=== PATIENT | female | born 1955 | race Caucasian/White ===

== ENCOUNTER 2017-03-04 12:21 | Emergency (ER) | payer OTHER ==
[~2017-03-04] VITALS: Ht 160 cm; Wt 100.7 kg
--- NOTE | ~2017-03-04 | EKG ---
[address] [address] ELECTROCARDIOGRAM REPORT Name: FERNANDO SCHULTE [id number] Admission: 03/04/17 Attend Phys: Discharge: 03/04/17 Date of : 51 Report #: [id number] THIS REPORT FOR: //name// [facility] ED Test Date: 2017-03-04 Test Time: 12:38:47 Pat Name: FERNANDO SCHULTE Department: Room: Gender: F Long Goods Drier: PETERSON : 1955 Requested By: Millie Macias Order Number: [id number] MD: Darrin Dyson Measurements Intervals [place] Rate: 76 P: 45 RI: 185 QRS: -29 QRSD: 124 T: 127 QT: 411 QTc: 463 Interpretive Statements Sinus rhythm Left atrial enlargement Nonspecific intraventricular conduction delay Inferior infarct, old Lateral leads are also involved Compared to ECG 06/04/2014 12:57:01 Atrial abnormality now present Intraventricular conduction delay now present Left-axis deviation no longer present Myocardial infarct finding still present Electronically Signed On 03-04-2017 23:02:41 HEAD OF SALES PROMOTION by Darrin Dyson [email or web address] <ELECTRONICALLY SIGNED> By: Darrin Dyson MD 03/04/17 2302 1238 1238 Darrin Dyson MD /EPI
[~2017-03-04 12:21] MED LIST: ACCUNEB SO1.25 MG/1; ASA81BEC PO; ASPIRIN325 PO; BRETHINE2.5 MG PO; EFFIENT10 MG PO; FISH OIL 1,001000 M2; FISH OIL 1,2001 EAC4 PO; FLONASE 0.05%50 MCG NASAL; FOLIC ACID0.4 MG PO; FOLIC ACID1 MG PO; GLUCOPHAGE1000 MG PO; HUMALOG100 UNIT/1 SUBQ; HYDROXYZINE HCL25 M2 PO; INVOKANA300 MG PO; LANTUS100 UNIT/M SUBQ; LEVOTHYROXIN0.025 MG PO; LEVOTHYROXIN0.088 MG PO; NITROGLYCERIN0.4 MG SUBLING; OMEPRAZOLE20 M2 PO; SINGULAIR 10 MG10 M1 PO; TOPROL XL50 MG PO; UNICOMPLEX M TA1 TA1 PO; VENTOLIN HFA 1818 GM INH; VITAMIN B COMP1 EACH PO; VITAMIN D1000 UNI1 PO; VITAMIN E100 UNI2; ZESTRIL20 MG PO; ZOCOR40 MG PO
[2017-03-04 13:24] LABS: ABSOLUTE NEUTROPHILS 3.1 thou/uL (1.4-8.2); BASOPHILS 1.2 % (0.0-2.0); EOSINOPHILS 2.5 % (0.0-3.0); HEMATOCRIT 38.7 % (37.0-47.0); HEMOGLOBIN 13.1 gm/dL (12.0-15.0); LYMPHOCYTES 35.8 % (24.0-44.0); MCH 31.5 pg (26.0-34.0); MCHC 33.8 g/dL (28.0-37.0); MONOCYTES 6.3 % (1.0-8.0); PLATELET COUNT 333 thou/uL (150-400); POLYS 54.2 % (36.0-66.0); RBC 4.16 mil/uL (4.20-5.00); RDW 13.7 % (10.5-14.5); WBC 5.7 thou/uL (4.0-11.0)
[2017-03-04 13:36] LABS: ANION GAP 10 mmol/L (7-16); CALCIUM 9.7 mg/dL (8.5-10.1); CHLORIDE 106 mmol/L (98-107); CO2 25 mmol/L (21-32); CREATININE 1.4 mg/dL (0.6-1.0); GLUCOSE 173 mg/dL (74-106); POTASSIUM 4.5 mmol/L (3.5-5.1); SODIUM 141 mmol/L (136-145); TROPONIN-I < 0.04 ng/mL (<0.06)
[2017-03-04 13:45] LABS: BUN 37 mg/dL (7-18)
[2017-03-04 15:31] VITALS: BP 133/77
== END 2017-03-04 15:32 | disposition home or self-care (01) ==
LOC: ER 12:21
PROVIDERS: Emergency Medicine
DX: R00.1 Bradycardia, unspecified (principal); E78.5 Hyperlipidemia, unspecified; E11.40 Type 2 diabetes mellitus with diabetic neuropathy, unspecified; K21.9 Gastro-esophageal reflux disease without esophagitis; I10 Essential (primary) hypertension; E03.9 Hypothyroidism, unspecified; Z90.49 Acquired absence of other specified parts of digestive tract; Z88.0 Allergy status to penicillin; Z88.2 Allergy status to sulfonamides; Z79.4 Long term (current) use of insulin

== ENCOUNTER 2018-11-07 20:31 | Inpatient (IN) | payer OTHER ==
[~2018-11-07] VITALS: Ht 167.6 cm; Wt 97.5 kg
[2018-11-07 20:32] VITALS: BP 141/95
[2018-11-07] MEDS ORDERED: SUPER LYSINE PO (20:51)
[2018-11-07] MEDS ORDERED: VITAMIN C PO (20:51)
[2018-11-07 20:52] LABS: ABSOLUTE NEUTROPHILS 3.8 thou/uL (1.4-8.2); BASOPHILS 1.2 % (0.0-2.0); HEMATOCRIT 37.7 % (37.0-47.0); HEMOGLOBIN 12.4 gm/dL (12.0-15.0); MCH 31.1 pg (26.0-34.0); MCHC 32.8 g/dL (28.0-37.0); MCV 94.9 fL (80.0-100.0); MONOCYTES 6.5 % (1.0-8.0); PLATELET COUNT 276 thou/uL (150-400); POLYS 58.3 % (36.0-66.0); RBC 3.98 mil/uL (4.20-5.00); RDW 13.9 % (10.5-14.5); WBC 6.5 thou/uL (4.0-11.0)
[2018-11-07] MEDS ORDERED: PLAVIX 75 MG TA75 M1 PO (20:52)
[2018-11-07] MEDS ORDERED: JARDIANCE10 MG PO (20:53)
[2018-11-07] MEDS ORDERED: VISTARIL 25 MG25 M1 PO (20:55)
[2018-11-07] MEDS ORDERED: ZEGERID 20 MG1 EACH PO (20:56)
[2018-11-07] MEDS ORDERED: FISH OIL 1,001000 M2 PO (20:57)
[2018-11-07 20:59] LABS: ANION GAP 12 mmol/L (7-16); BUN 21 mg/dL (7-18); CALCIUM 9.5 mg/dL (8.5-10.1); CHLORIDE 98 mmol/L (98-107); CO2 24 mmol/L (21-32); CREATININE 1.1 mg/dL (0.6-1.0); GLUCOSE 162 mg/dL (74-106); SODIUM 134 mmol/L (136-145)
[2018-11-07] MEDS ORDERED: BASAGLAR K100 UNIT/1 (20:59)
[2018-11-07] MEDS ORDERED: ASPIR 8181 MG PO (21:02)
[2018-11-07 21:09] LABS: TROPONIN-I <0.06 ng/mL (<0.06)
[2018-11-07 22:28] VITALS: BP 151/92
[2018-11-07 22:49] VITALS: BP 126/67
[2018-11-08] VITALS (7 sets, daily range): BP systolic 104–151; BP diastolic 60–81
[2018-11-08] LABS: CHOLESTEROL 186 mg/dL (<200); HDL CHOLESTEROL 57 mg/dL (>40); LDL CHOLESTEROL 96 mg/dL (<100); TC:HDL 3.3 Ratio (Not establshd); TRIGLYCERIDE 168 mg/dL (<150); VLDL 34 mg/dL (<40)
[2018-11-08 00:02] LABS: SERUM ASSESSMENT Clear
--- NOTE | 2018-11-08 03:16 | NUR ---
PT ARRIVED ON UNIT FROM ER AT 2240. COMES FROM HOME. HAD BEEN AT [place] AND BEGAN HAVING SOME CHEST PAIN. TOOK TWO NITRO PILLS AT HOME WELL AN ASPIRIN. THIS DID NOT RESOLVE THE CHEST PAIN. CALLED 911 AND CAME TO ER. BY THE TIME SHE ARRIVED THE CHEST PAIN WAS RESOLVED. THROUGHOUT THE REMAIDER OF THIS SHIFT SHE HAD NO COMPLAINTS OF CHEST PAIN. DENIES NAUSEA. AMBULATING TO BATHROOM INDEPENDENTLY. PLAN FOR NUC STRESS TEST 11/08. RESTING COMFORTABLY. NO NEEDS VOICED. CALL LIGHT WITHIN REACH. WILL CONTINUE TO PROVIDE FREQUENT OBSERVATION.
[2018-11-08 04:01] LABS: CALCIUM 9.2 mg/dL (8.5-10.1); CREATININE 1.3 mg/dL (0.6-1.0); POTASSIUM 4.3 mmol/L (3.5-5.1)
[2018-11-08 04:09] LABS: TROPONIN-I 0.41 ng/mL (<0.06)
--- NOTE | 2018-11-08 08:01 | EKG ---
[address] [place] [address] ELECTROCARDIOGRAM REPORT Name: FERNANDO SCHULTE Room #: 214-P ADM IN M.R.#: [id number] Admission: 11/07/18 Attend Phys: Benito Bartholomew MD Discharge: Date of : 51 Report #: [id number] THIS REPORT FOR: //name// [facility] ED Test Date: 2018-11-07 Test Time: 20:34:42 Pat Name: FERNANDO SCHULTE Department: Room: 214 Gender: F Annual Giving Officer: ABY : 1955 Requested By: Nicholas Kennedy Order Number: [id number] MD: Darrin Dyson Measurements Intervals [place] Rate: 76 P: 71 SD: 174 QRS: -41 QRSD: 128 T: 91 QT: 432 QTc: 486 Interpretive Statements Sinus rhythm Left atrial enlargement Nonspecific IVCD with LAD Anterior infarct, old Compared to ECG 03/04/2017 12:38:47 No significant changes Electronically Signed On 11-08-2018 8:01:27 CDT by Darrin Dyson [email or web address] <ELECTRONICALLY SIGNED> By: Darrin Dyson MD 11/08/18800 33 33 Darrin Dyson MD /JUANJO
--- NOTE | 2018-11-08 08:03 | EKG ---
[address] [address] ELECTROCARDIOGRAM REPORT Name: FERNANDO SCHULTE Room #: 214-P ADM IN M.R.#: [id number] Admission: 11/07/18 Attend Phys: Benito Bartholomew MD Discharge: Date of : 51 Report #: [id number] THIS REPORT FOR: //name// [facility] Test Date: 2018-11-08 Test Time: 07:32:06 Pat Name: FERNANDO SCHULTE Department: Room: 214 P Gender: F Information Clerk Brokerage: FUENTES : 1955 Requested By: Johana Zepeda Order Number: [id number] MD: Darrin Dyson Measurements Intervals [place] Rate: 69 P: 58 RI: 173 QRS: -26 QRSD: 119 T: 162 QT: 502 QTc: 538 Interpretive Statements Sinus rhythm Probable left atrial enlargement Nonspecific intraventricular conduction delay Inferior infarct, old Abnrm T, consider ischemia, anterolateral lds Compared to ECG 03/04/2017 12:38:47 Possible ischemia now present Myocardial infarct finding still present Electronically Signed On 11-08-2018 8:02:58 CDT by Darrin Dyson [email or web address] <ELECTRONICALLY SIGNED> By: Darrin Dyson MD 11/08/1802 0732 Darrin Dyson MD /EPI
--- NOTE | 2018-11-08 10:15 | NUR ---
RECEIVED FROM PHOTOGRAPHER MOTION PICTURE. VSS R GROIN CATH SITE WITHOUT HEMATOMA NO BRUIT HEARD NSR PT INSTRUCTED BR. SEE DATA FLOW SHEET FOR FREQUENT VITAL SIGNS AND GROIN CHECKS. WILL CONTINUE TO MONITER AND CARE FOR PT PER PLAN OF CARE
--- NOTE | 2018-11-08 12:51 | CATHLAB ---
[facility] [address] [place] [address] INVASIVE PROCEDURE REPORT Name: FERNANDO SCHULTE Room #: 214-P ADM IN M.R.#: [id number] Admission: 11/07/18 Attend Phys: Benito Bartholomew Discharge: Date of : 51 Date of Service: 11/08/18 1251 Report #: [id number] THIS REPORT FOR: //name// APPROVED REPORT Study performed: 11/08/2018 08:33:11 Patient Details Patient Status: In-Patient Room #: The patient is a 63 year-old female Event Personnel Andrew Lucio Household Appliance Installer, Ivy Pearl RN RN, Krishna Espnial RTR Scrjelena, Nitish Reece Monitor Procedures Performed Left Heart Cath w/or w/o Coronaries [id number] [facility] Place w/wo Plasty Single LAD [id number] Indication Chest pain Procedure Narrative The Right Groin^ was infiltrated with 1% Lidocaine subcutaneous anesthesia. A PINNACLE 6FR Sheath #[id number] sheath was inserted into the RFA^. Coronary angiography was performed using coronary diagnostic catheters. The right coronary system was accessed and visualized with a JR4 catheter. The left coronary system was accessed and visualized with a JL4 catheter. The left ventricle was accessed and visualized with a PIGTAIL catheter. Left ventricular/Aortic Valve gradient assessed via catheter pullback. Left ventriculogram was performed in 30 degree projection. Closure device was deployed with a 6 Fr ACT #[id number]. The patient tolerated the procedure well and there were no complications associated with the procedure. There was no hematoma. Intraoperative Conscious Sedation Sedation start time: 8.48 Case end Time: 10.09 Fentanyl 100 mcg Versed 1 mg Fluoro Time: 16.70 minutes Dose: DAP 45779.00 cGycm2 2993 mGy Contrast Type and Amount: Visipaque 230 ml [facility] [place] [address] INVASIVE PROCEDURE REPORT Name: FERNANDO SCHULTE Room #: 214-P [facility] IN M.R.#: [id number] Admission: 11/07/18 Attend Phys: Benito Bartholomew Discharge: Date of : 51 Date of Service: 11/08/18 1251 Report #: [id number] Coronary Angiography The patient's coronary anatomy is right dominant. Diagnostic Cath Left Main Minimal left main plaquing. Large in caliber LAD Critical proximal 99% LAD stenosis Previously placed proximal LAD stent with moderate intrastent plaquing Diagonal 1 Small, angiographically normal first diagonal branch. Diagonal 2 Moderate size second diagonal branch, angiographically normal Circumflex Large, nondominant circumflex comprised of 3 marginal branches OM1 Moderate sized first marginal branch, angiographically normal OM2 Large second marginal branch, angiographically normal OM3 Small, terminal third marginal branch, angiographically normal Right Coronary Large, dominant right coronary with 30% mid vessel plaquing R PDA Normal posterior descending branch. RPLV Large, normal posterolateral branch Left Ventriculography The left ventricle is mildly dilated in size with abnormal contractility. The left ventricular ejection fraction is estimated to be 40-45%. Left ventricular wall motion abnormalities are present. There is no mitral insufficiency. Anteroapical hypokinesis Hemodynamics The aortic pressure is 129/70 mmHg with a mean of 97 mmHg. The left ventricular pressure is 141/12 mmHg with a mean of mmHg. The left ventricular end diastolic pressure is 28 mmHg. There was no gradient across the aortic valve upon pullback. Pullback from the left ventricle to the aorta revealed no gradient across the aortic valve. PCI Technique Lesion Anticoagulation was achieved with Heparin, Integrilin. Patient was preloaded with Effient. Percutaneous coronary intervention was performed on the proximal left anterior descending artery segment. The lesion stenosis prior to intervention was 99% with CARMEN 3 flow. A 6FR LAUNCHER EBU 3.0 #[id number] Guide Catheter was used to engage the [facility] [address] [place] [address] INVASIVE PROCEDURE REPORT Name: FERNANDO SCHULTE Room #: 214-P [facility] IN M.R.#: [id number] Admission: 11/07/18 Attend Phys: Benito Bartholomew Discharge: Date of : 51 Date of Service: 11/08/18 1251 Report #: [id number] left main ostium. A Luge Wire .014 x 182CM #[id number] Interventional Guidewire was used to cross the lesion. BALLOON DILATION A Balloon catheter Sprinter OTW 2.5 x 12 #[id number] was inserted and inflated up to 8.00atm for 13seconds. Repeat angiography revealed the following post-dilatation results: moderate residual stenosis. Additional Inflation: 8.00atm for 20seconds. Additional Inflation: 16.00atm for 36seconds. STENT DEPLOYMENT A drug-eluting stent XIENCE HA RX 2.5 X 18 #[id number] was inserted and inflated up to 8atm for 35seconds. POST STENT DEPLOYMENT BALLOON DILATION A Balloon catheter TREK NC RX 2.75 X 15 #[id number] was inserted and inflated up to 18.00atm for 35seconds. Additional Inflation: 22atm for 30seconds. Additional Inflation: 22atm for 25seconds. Final angiography reveals 0 % stenosis with CARMEN 3 flow. Conclusion 1. Moderate left ventricular dysfunction with anteroapical hypokinesis. Ejection fraction 40%. 2. Minimal left main plaquing. 3. Critical proximal LAD stenosis successfully stented with a 2.5 x 18mm Xience medicated stent, post-dilated to 2.8mm 3. Mild plaquing in a large but nondominant circumflex 4. 30% mid right coronary stenosis. Right coronary dominant circulation. <ELECTRONICALLY SIGNED> By: Andrew Lucio MD, [facility] 11/08/18 1251 125 125 Andrew Lucio MD, FAC /INF
--- NOTE | 2018-11-08 16:43 | NUR ---
VSS REMAINS NSR, STABLE AFTER CATH , R GROIN CATH SITE WITHOUT HEMATOMA , NO BRUIT HEARD, PT UP TO BRP WITHOUT DIFFICULTY, NO C/O CHEST PAIN WILL CONTINUE TO MONITER AND CARE FOR PT PER PLANOF CARE
[2018-11-09 00:30] VITALS: BP 108/54
[2018-11-09 01:10] LABS: GLYCOHEMOGLOBIN (HGB A1C) 9.1 % (4.8-5.6)
[2018-11-09 05:10] VITALS: BP 115/58
[2018-11-09 05:10] LABS: HEMATOCRIT 36.4 % (37.0-47.0); MCH 31.1 pg (26.0-34.0); MCV 94.3 fL (80.0-100.0); RBC 3.86 mil/uL (4.20-5.00); RDW 13.8 % (10.5-14.5); WBC 6.6 thou/uL (4.0-11.0)
[2018-11-09 05:23] LABS: ALBUMIN 3.4 g/dL (3.4-5.0); CALCIUM 9.1 mg/dL (8.5-10.1); CREATININE 1.2 mg/dL (0.6-1.0); POTASSIUM 3.9 mmol/L (3.5-5.1); TOTAL BILIRUBIN 0.5 mg/dL (<0.1-1.0); TOTAL PROTEIN 6.3 g/dL (6.4-8.2); TROPONIN-I 0.29 ng/mL (<0.06)
--- NOTE | 2018-11-09 06:52 | NUR ---
PATIENTS CARES WERE ASSUMED AT SHIFT CHANGE. PATIENT WAS ASSESSED AND MEDS WERE PASSED. PATIENT HAD AN UNEVENFUL NIGHT CATH SITE RIGHT LEG IS STILL CLEAN DRY AND INTACT. HOURLY ROUNDING WAS DONE. THE BED IS IN A LOW AND LOCKED POSITION
[2018-11-09] MEDS ORDERED: SYNTHROID100 MC1 PO ×2 (08:14→13:31)
[2018-11-09] MEDS ORDERED: EFFIENT10 MG PO ×3 (08:14→13:35)
--- NOTE | 2018-11-09 08:31 | NUR ---
ASSUMED CARE OF PT APPROX 0715, A&0X4, SBA STEADY GOOD APPETITE, TENATIVE D/C TODAY. HER RIDES COMING AROUND 13:00, LET HER KNOW D/C PROCESS CAN TAKE A BIT. SHE'S IN GOOD SPIRITS. KNOWS HER PROCEDURE AND DETAILS, RIGHT GROIN CDI WITH SMALL BRUISING A FEW INCHES BELOW BANDAGE. WEARS GLASSES, IV SL, CARDIAC MONITORED. WILL CONTINUE TO MONITOR
[2018-11-09 08:39] VITALS: BP 122/60
[2018-11-09 12:00] VITALS: BP 135/67
--- NOTE | 2018-11-09 12:37 | EKG ---
[place] [address] [facility] [place] [address] ELECTROCARDIOGRAM REPORT Name: FERNANDO SCHULTE Room #: 214-P ADM IN M.R.#: [id number] Admission: 11/07/18 Attend Phys: Benito Bartholomew MD Discharge: Date of : 51 Report #: [id number] THIS REPORT FOR: //name// [facility] Test Date: 2018-11-08 Test Time: 13:39:03 Pat Name: FERNANDO SCHULTE Department: Room: 214 P Gender: F Stack Matcher: Fay CRAVEN : 1955 Requested By: Andrew Lucio Order Number: [id number] MD: Andrew Lucio Measurements Intervals [place] Rate: 71 P: 60 [place]: 177 QRS: -40 QRSD: 123 T: 185 QT: 494 QTc: 537 Interpretive Statements Sinus rhythm Nonspecific IVCD with LAD Abnormal T, consider ischemia, diffuse leads Compared to ECG 11/08/2018 07:32:06 No significant change was found Electronically Signed On 11-09-2018 12:37:21 CDT by Andrew Lucio [email or web address] <ELECTRONICALLY SIGNED> By: Andrew Lucio MD, [facility] 11/09/18 1237 1339 1339 Andrew Lucio MD, [facility] /EPI
[2018-11-09] MEDS ORDERED: COLACE100 MG PO (13:13)
[2018-11-09 13:28] VITALS: BP 122/60
--- NOTE | 2018-11-09 14:15 | EKG ---
[address] [place] [address] ELECTROCARDIOGRAM REPORT Name: FERNANDO SCHULTE Room #: 214-P ADM IN M.R.#: [id number] Admission: 11/07/18 Attend Phys: Benito Bartholomew MD Discharge: Date of : 51 Report #: [id number] THIS REPORT FOR: //name// [facility] Test Date: 2018-11-09 Test Time: 07:14:33 Pat Name: FERNANDO SCHULTE Department: Room: 214 P Gender: F De Icer Finisher: FUENTES : 1955 Requested By: Andrew Lucio Order Number: [id number] MD: Darrin Dyson Measurements Intervals [place] Rate: 69 P: 46 NE: 171 QRS: -21 QRSD: 112 T: QT: 408 QTc: 437 Interpretive Statements Sinus rhythm Ventricular trigeminy Unchanged T wave inversions Electronically Signed On 11-09-2018 14:15:29 CDT by Darrin Dyson [email or web address] <ELECTRONICALLY SIGNED> By: Darrin Dyson MD 11/09/18 1415 0714 07 Darrin Dyson MD /JUANJO
== END 2018-11-09 14:35 | disposition home or self-care (01) | DRG 246 ==
LOC: ER 20:31 → EROBS 22:01 → 2N 22:01 → 4W 22:09 → EROBS 22:10 → 2N 22:31 → ENTRNSPT 11-09 14:31 → 2N 11-09 14:35
PROVIDERS: Emergency Medicine; Internal Medicine; Nurse Practitioner Family; ADMIT Internal Medicine
DX: I21.4 Non-ST elevation (NSTEMI) myocardial infarction (principal); I50.43 Acute on chronic combined systolic (congestive) and diastolic (congestive) heart failure; I51.81 Takotsubo syndrome; E11.22 Type 2 diabetes mellitus with diabetic chronic kidney disease; E78.5 Hyperlipidemia, unspecified; K21.9 Gastro-esophageal reflux disease without esophagitis; J45.909 Unspecified asthma, uncomplicated; E03.9 Hypothyroidism, unspecified; E11.42 Type 2 diabetes mellitus with diabetic polyneuropathy; I25.119 Atherosclerotic heart disease of native coronary artery with unspecified angina pectoris; I65.23 Occlusion and stenosis of bilateral carotid arteries; I12.9 Hypertensive chronic kidney disease with stage 1 through stage 4 chronic kidney disease, or unspecified chronic kidney disease; N18.3 Chronic kidney disease, stage 3 (moderate); I25.2 Old myocardial infarction; Z95.5 Presence of coronary angioplasty implant and graft; Z90.49 Acquired absence of other specified parts of digestive tract; Z90.710 Acquired absence of both cervix and uterus; Z90.79 Acquired absence of other genital organ(s); Z90.722 Acquired absence of ovaries, bilateral; Z79.4 Long term (current) use of insulin; Z79.82 Long term (current) use of aspirin; Z79.899 Other long term (current) drug therapy; Z88.1 Allergy status to other antibiotic agents; Z88.0 Allergy status to penicillin; Z88.2 Allergy status to sulfonamides; Z88.8 Allergy status to other drugs, medicaments and biological substances; Z82.49 Family history of ischemic heart disease and other diseases of the circulatory system
CPT/HCPCS: 10081

== ENCOUNTER → 2019-04-05 | Outpatient (CLI) | payer OTHER ==
[~2019-04-05] MED LIST changes: +ASPIR 8181 MG PO; +BASAGLAR K100 UNIT/1; +COLACE100 MG PO; +FISH OIL 1,001000 M2 PO; +JARDIANCE10 MG PO; +PLAVIX 75 MG TA75 M1 PO; +SUPER LYSINE PO; +SYNTHROID100 MC1 PO; +VISTARIL 25 MG25 M1 PO; +VITAMIN C PO; +ZEGERID 20 MG1 EACH PO
== END ==
LOC: SJCVCIMAG 04-04 15:27
DX: I25.10 Atherosclerotic heart disease of native coronary artery without angina pectoris (principal); I25.5 Ischemic cardiomyopathy; E78.5 Hyperlipidemia, unspecified; I65.23 Occlusion and stenosis of bilateral carotid arteries; E11.22 Type 2 diabetes mellitus with diabetic chronic kidney disease; I12.9 Hypertensive chronic kidney disease with stage 1 through stage 4 chronic kidney disease, or unspecified chronic kidney disease; N18.3 Chronic kidney disease, stage 3 (moderate); E03.9 Hypothyroidism, unspecified; K21.9 Gastro-esophageal reflux disease without esophagitis; Z79.4 Long term (current) use of insulin; Z90.49 Acquired absence of other specified parts of digestive tract; Z95.5 Presence of coronary angioplasty implant and graft; Z90.710 Acquired absence of both cervix and uterus; Z79.899 Other long term (current) drug therapy

== ENCOUNTER → 2019-06-17 | Outpatient (CLI) | payer OTHER | LOC: SJCVCIMAG 10:57 | DX: I08.8 Other rheumatic multiple valve diseases (principal); I25.10 Atherosclerotic heart disease of native coronary artery without angina pectoris; I25.5 Ischemic cardiomyopathy; E78.5 Hyperlipidemia, unspecified; I65.23 Occlusion and stenosis of bilateral carotid arteries; E11.22 Type 2 diabetes mellitus with diabetic chronic kidney disease; N18.3 Chronic kidney disease, stage 3 (moderate); Z79.4 Long term (current) use of insulin ==

== ENCOUNTER → 2019-10-04 | Outpatient (CLI) | payer OTHER | LOC: SJCVCIMAG 09:41 | PROVIDERS: ATTEND Internal Medicine | DX: I65.23 Occlusion and stenosis of bilateral carotid arteries (principal); R94.31 Abnormal electrocardiogram [ECG] [EKG]; I25.10 Atherosclerotic heart disease of native coronary artery without angina pectoris; I25.5 Ischemic cardiomyopathy; E78.5 Hyperlipidemia, unspecified; E11.22 Type 2 diabetes mellitus with diabetic chronic kidney disease; I12.9 Hypertensive chronic kidney disease with stage 1 through stage 4 chronic kidney disease, or unspecified chronic kidney disease; N18.3 Chronic kidney disease, stage 3 (moderate); Z79.4 Long term (current) use of insulin; Z79.899 Other long term (current) drug therapy ==

== ENCOUNTER → 2020-04-05 | Outpatient (CLI) | payer OTHER | LOC: SJCVC 13:11 | PROVIDERS: ATTEND Internal Medicine | DX: R94.31 Abnormal electrocardiogram [ECG] [EKG] (principal); I44.7 Left bundle-branch block, unspecified; I25.10 Atherosclerotic heart disease of native coronary artery without angina pectoris; I25.5 Ischemic cardiomyopathy; E78.5 Hyperlipidemia, unspecified; I65.23 Occlusion and stenosis of bilateral carotid arteries; I12.9 Hypertensive chronic kidney disease with stage 1 through stage 4 chronic kidney disease, or unspecified chronic kidney disease; E11.22 Type 2 diabetes mellitus with diabetic chronic kidney disease; N18.30 Chronic kidney disease, stage 3 unspecified; J45.909 Unspecified asthma, uncomplicated; R51.9 Headache, unspecified; G89.29 Other chronic pain; K21.9 Gastro-esophageal reflux disease without esophagitis; E03.9 Hypothyroidism, unspecified; I25.2 Old myocardial infarction; Z79.4 Long term (current) use of insulin; Z79.899 Other long term (current) drug therapy; Z88.8 Allergy status to other drugs, medicaments and biological substances; Z88.2 Allergy status to sulfonamides; Z88.1 Allergy status to other antibiotic agents; Z88.0 Allergy status to penicillin ==

== ENCOUNTER → 2020-07-11 | Outpatient (CLI) | payer OTHER | LOC: CAT 12:15 | PROVIDERS: ATTEND Internal Medicine | DX: Z13.6 Encounter for screening for cardiovascular disorders (principal); I25.10 Atherosclerotic heart disease of native coronary artery without angina pectoris; E78.00 Pure hypercholesterolemia, unspecified ==

== ENCOUNTER → 2020-10-03 | Outpatient (CLI) | payer OTHER | LOC: SJCVCIMAG 09:00 | PROVIDERS: ATTEND Internal Medicine | DX: I65.23 Occlusion and stenosis of bilateral carotid arteries (principal); R94.31 Abnormal electrocardiogram [ECG] [EKG]; I25.10 Atherosclerotic heart disease of native coronary artery without angina pectoris; I25.5 Ischemic cardiomyopathy; E78.5 Hyperlipidemia, unspecified; E11.22 Type 2 diabetes mellitus with diabetic chronic kidney disease; I12.9 Hypertensive chronic kidney disease with stage 1 through stage 4 chronic kidney disease, or unspecified chronic kidney disease; N18.30 Chronic kidney disease, stage 3 unspecified; J45.909 Unspecified asthma, uncomplicated; K21.9 Gastro-esophageal reflux disease without esophagitis; E03.9 Hypothyroidism, unspecified; Z90.49 Acquired absence of other specified parts of digestive tract; Z95.5 Presence of coronary angioplasty implant and graft; Z90.710 Acquired absence of both cervix and uterus; Z82.49 Family history of ischemic heart disease and other diseases of the circulatory system; Z88.0 Allergy status to penicillin; Z88.2 Allergy status to sulfonamides; Z88.8 Allergy status to other drugs, medicaments and biological substances; Z79.82 Long term (current) use of aspirin; Z79.4 Long term (current) use of insulin; Z79.899 Other long term (current) drug therapy ==

== ENCOUNTER → 2020-11-27 | Outpatient (CLI) | payer OTHER | LOC: SJCVC 15:17 | PROVIDERS: ATTEND Internal Medicine | DX: I25.10 Atherosclerotic heart disease of native coronary artery without angina pectoris (principal); I25.5 Ischemic cardiomyopathy; E78.5 Hyperlipidemia, unspecified; I65.23 Occlusion and stenosis of bilateral carotid arteries; E11.22 Type 2 diabetes mellitus with diabetic chronic kidney disease; N18.30 Chronic kidney disease, stage 3 unspecified; E03.9 Hypothyroidism, unspecified; K21.9 Gastro-esophageal reflux disease without esophagitis; Z79.4 Long term (current) use of insulin; Z79.899 Other long term (current) drug therapy; Z79.82 Long term (current) use of aspirin; Z88.2 Allergy status to sulfonamides; Z88.8 Allergy status to other drugs, medicaments and biological substances; Z88.0 Allergy status to penicillin ==

== ENCOUNTER → 2021-02-27 | Outpatient (CLI) | payer OTHER | LOC: SJCVC 14:41 | PROVIDERS: ATTEND Internal Medicine | DX: R94.31 Abnormal electrocardiogram [ECG] [EKG] (principal); I25.10 Atherosclerotic heart disease of native coronary artery without angina pectoris; I25.5 Ischemic cardiomyopathy; E78.5 Hyperlipidemia, unspecified; I65.23 Occlusion and stenosis of bilateral carotid arteries; E11.9 Type 2 diabetes mellitus without complications; N18.30 Chronic kidney disease, stage 3 unspecified; K21.9 Gastro-esophageal reflux disease without esophagitis; E03.9 Hypothyroidism, unspecified; R51.9 Headache, unspecified; Z79.4 Long term (current) use of insulin; Z88.5 Allergy status to narcotic agent; Z88.1 Allergy status to other antibiotic agents; Z88.0 Allergy status to penicillin; Z79.82 Long term (current) use of aspirin; Z79.899 Other long term (current) drug therapy; Z95.5 Presence of coronary angioplasty implant and graft; Z82.49 Family history of ischemic heart disease and other diseases of the circulatory system ==